=== PATIENT | male | born 2000 | race Hispanic/Latino ===

== ENCOUNTER → 2021-10-07 | Outpatient (CLI) | payer OTHER | LOC: M PLAIMG 08:59 → EDBD 09:00 | PROVIDERS: ATTEND Physician Assistant | DX: M25.571 Pain in right ankle and joints of right foot (principal) ==

== ENCOUNTER 2021-11-30 13:44 | Emergency (ER) | payer OTHER ==
[~2021-11-30] VITALS: Ht 175.3 cm; Wt 91.1 kg
[2021-11-30] MEDS ORDERED: dexameTHASONE 20MG/5ML VIAL (J1100 PER 1MG) IV ONE (16:35)
[2021-11-30] MEDS ORDERED: NS 1,000 ML IV ONE (16:35)
[2021-11-30] MEDS ORDERED: KETOROLAC 30 MG/ML 1ML VIAL IV ONE (16:35)
[2021-11-30 16:53] LABS: BASO % 0.6 % (0.0-1.0); EOS # 0.3 10^3/uL (0.0-0.5); EOS % 3.8 % (0.0-3.0); HEMATOCRIT 44.8 % (42.0-52.0); HEMOGLOBIN 14.9 g/dl (13.5-17.5); LYMPH # 1.7 10^3/uL (1.5-5.0); LYMPH % 25.2 % (24.0-44.0); MEAN CORPUSCULAR HEMOGLOBIN 30.3 pg (27.0-33.0); MEAN CORPUSCULAR HGB CONC 33.3 g/dl (32.0-36.5); MEAN CORPUSCULAR VOLUME 91.1 fl (80.0-96.0); MONO # 0.7 10^3/uL (0.0-0.8); MONO % 10.1 % (2.0-8.0); NEUTROPHILS # 4.1 10^3/uL (1.5-8.5); NEUTROPHILS % 60.2 % (36.0-66.0); PLATELET COUNT, AUTOMATED 246 10^3/uL (150-450); RED BLOOD COUNT 4.92 10^6/uL (4.30-6.10); WHITE BLOOD COUNT 6.8 10^3/uL (4.0-10.0)
[2021-11-30 17:19] LABS: MONO SCRN NEGATIVE (NEGATIVE)
[2021-11-30 17:23] LABS: BLOOD UREA NITROGEN 14 MG/DL (7-18); CALCIUM LEVEL 9.6 MG/DL (8.5-10.1); CARBON DIOXIDE LEVEL 30 MEQ/L (21-32); CHLORIDE LEVEL 106 MEQ/L (98-107); CREATININE FOR GFR 0.85 MG/DL (0.70-1.30); GLUCOSE, FASTING 83 MG/DL (70-100); POTASSIUM SERUM 4.1 MEQ/L (3.5-5.1); SODIUM LEVEL 141 MEQ/L (136-145)
[2021-11-30] MEDS ORDERED: AMPICILLIN SOD/SULBACTAM SOD 3 GM in D5W MINI-BAG PLUS 100 ML IV ONE (19:05)
[2021-11-30] MEDS ORDERED: IBUP-1022 PO (19:26)
[2021-11-30] MEDS ORDERED: AMOX875T2 PO (19:26)
[2021-11-30 19:57] VITALS: BP 114/55
== END 2021-11-30 20:02 | disposition home or self-care (01) ==
LOC: M ED 13:44
DX: J02.9 Acute pharyngitis, unspecified (principal); J03.90 Acute tonsillitis, unspecified
CPT/HCPCS: 80048; 85025; 86308; 87428; 87880; 96365; 96375; 99284; J0295; J1100; J1885